=== PATIENT | male | born 1975 | race Hispanic/Latino ===

== ENCOUNTER 2017-08-28 22:44 | Inpatient (IN) | payer MEDICARE, MEDICAID ==
[2017-08-28 22:44] VITALS: BMI 21.2
--- NOTE | 2017-08-28 22:58 | ED PDOC ---
Arrival/HPI - General Chief Complaint: Psychiatric Evaluation Time Seen by Provider: 08/28/17 22:54 Historian: Patient EM Caveat: Acuity of Condition, Altered Mental Status, Other (suicidal ideation) - History of Present Illness Narrative History of Present Illness (Text): 08/28/17 22:58 Pt is a 41 yo M BIBA for Overdose of Seroquel (10 pills from 150 mg bottle and 10 pills from a 200 mg bottle) along with a large can of beer after having a fight with his girlfriend. Pt states that he felt extremely distraught and wanted to take his life after GF said she was leaving him. PMH includes depression and insomnia. Associated complaints include dry mouth and drowsiness. Denies cp, sob, dysphagia, LOC, abdominal pain, nausea, vomiting or diarrhea. Time/Duration: 1/2 hour Symptom Onset: Sudden Symptom Course: Improving, Worsening Severity Level: 1, Mild Activities at Onset: Rest Context: Home (had fight with girlfriend) Past Medical History - Provider Review Nursing Documentation Reviewed: Yes - Travel History Have you recently traveled outside [place] w/in the past 3 mons?: No - Past History Past History: No Previous - Infectious Disease Hx of Infectious Diseases: None - Tetanus Immunization Tetanus Immunization: Unknown - Cardiac Hx Cardiac Disorders: No Hx Hypertension: No - Pulmonary Hx Asthma: Yes Hx Tuberculosis: No - Neurological HX Cerebrovascular Accident: No Hx Seizures: No - Renal Other/Comment: As per patient he is currently seeing a specialist due to having problems emptying his bladder - Hematological/Oncological Hx Cancer: No - Integumentary Hx Psoriasis: Yes - Genitourinary/Gynecological Hx Sexually Transmitted Diseases: No - Psychiatric Hx Depression: Yes (Recent as per patient depressed for two days now) Hx Substance Use: No - Anesthesia Hx Anesthesia: No Hx Anesthesia Reactions: No Hx Malignant Hyperthermia: No Family/Social History - Physician Review Nursing Documentation Reviewed: Yes Family/Social History: No Known Family HX Smoking Status: Never Smoked Hx Alcohol Use: Yes (As per patient six beers) Hx Substance Use: No Allergies/Home Meds Allergies/Adverse Reactions: Allergies keflex Allergy (Uncoded 01/10/15 15:10) RASH Home Medications: Home Meds Medication Instructions Recorded Confirmed QUEtiapine [SEROquel] 200 mg PO HS 09/28/16 08/28/17 Review of Systems - Physician Review All systems were reviewed & negative as marked: Yes - Review of Systems Constitutional: Normal Eyes: Normal ENT: Normal Respiratory: Normal Cardiovascular: Normal Gastrointestinal: Normal Genitourinary Male: Normal Musculoskeletal: Normal Skin: Normal Neurological: Normal Endocrine: Normal Hemo/Lymphatic: Normal Psychiatric: Normal Physical Exam - Physical Exam Physical Exam Limitations: Altered Mental Status, Other (suicidal ideation) Vital Signs Reviewed: Yes Vital Signs Temp Pulse Resp BP Pulse Ox 08/29/17 07:55 98.0 F 71 18 117/78 98 08/29/17 07:35 98.0 F 84 18 117/78 95 08/29/17 06:30 66 18 97/68 L 100 08/29/17 05:03 79 17 119/70 100 08/29/17 00:40 85 17 105/62 97 08/28/17 23:02 98.7 F 83 16 101/75 96 Temperature: Afebrile Blood Pressure: Normal Pulse: Regular Respiratory Rate: Normal Appearance: Positive for: Non-Toxic Pain Distress: None Mental Status: Positive for: Alert and Oriented X 3 - Systems Exam Head: Present: Atraumatic, Normocephalic Pupils: Present: PERRL Extroacular Muscles: Present: EOMI Conjunctiva: Present: Normal Mouth: Present: Moist Mucous Membranes Neck: Present: Normal Range of Motion Respiratory/Chest: Present: Clear to Auscultation, Good Air Exchange. No: Respiratory Distress, Accessory Muscle Use Cardiovascular: Present: Regular Rate and Rhythm, Normal S1, S2. No: Murmurs Abdomen: Present: Normal Bowel Sounds. No: Tenderness, Distention, Peritoneal Signs Back: Present: Normal Inspection Upper Extremity: Present: Normal Inspection. No: Cyanosis, Edema Lower Extremity: Present: Normal Inspection. No: Edema Neurological: Present: GCS=15, CN II-XII Intact, Speech Normal Skin: Present: Warm, Dry, Normal Color. No: Rashes Psychiatric: Present: Alert, Oriented x 3, Normal Insight, Normal Concentration Medical Decision Making ED Course and Treatment: 08/28/17 23:04 Pt is a 41 yo M BIBA for Overdose of Seroquel (10 pills from 150 mg bottle and 10 pills from a 200 mg bottle along with a large can of beer. Plan: Psych consult-->intentional suicide OD workup-->poison control was called IVF bolus 1L LFTs and Mag level portable cxr ecg PES called to do evaluation and admit On reevaluation, pt was resting comfortably in bed; alert and oriented x 3. Re-evaluation Time: 00:19 (VSS and pt remains alert) - Lab Interpretations Lab Results: 08/28/17 23:00 08/28/17 23:00 Lab Results 08/29/17 00:30: Urine Opiates Screen Negative, Urine Methadone Screen Negative, Ur Barbiturates Screen Negative, Ur Phencyclidine Scrn Negative, Ur Amphetamines Screen Negative, U Benzodiazepines Scrn Negative, U Oth Cocaine Metabols Negative, U Cannabinoids Screen Negative 08/29/17 00:30: Urine Color Yellow, Urine Appearance Clear, Urine pH 6.0, Ur Specific [place] 1.025, Urine Protein Negative, Urine Glucose (UA) Negative, Urine Ketones Negative, Urine Blood Trace-intact H, Urine Nitrate Negative, Urine Bilirubin Negative, Urine Urobilinogen 0.2, Ur Leukocyte Esterase Negative , Urine RBC 0 - 2, Urine WBC 0 - 2, Ur Epithelial Cells 0 - 2 08/28/17 23:45: Magnesium 2.0 08/28/17 23:00: Alcohol, Quantitative < 10 08/28/17 23:00: Salicylates < 1 L, Acetaminophen < 10.0 L 08/28/17 23:00: Sodium 140, Potassium 3.7, Chloride 103, Carbon Dioxide 26, Anion Gap 15, BUN 15, Creatinine 0.9, Est GFR ( Amer) > 60, Est GFR (Non- Af Amer) > 60, Random Glucose 152 H, Calcium 9.6, Total Bilirubin 0.4, AST 22, ALT 32, Alkaline Phosphatase 82, Total Protein 7.1, Albumin 4.3, Globulin 2.8, Albumin/Globulin Ratio 1.5 08/28/17 23:00: WBC 6.3 D, RBC 4.73, Hgb 14.3, Hct 42.6, MCV 90.1, MCH 30.2, MCHC 33.6, RDW 12.9, Plt Count 195, MPV 10.5, Gran % 69.0 H, Lymph % (Auto) 24.0 , [place] % (Auto) 6.0, Eos % (Auto) 0.5 L, Baso % (Auto) 0.5, Gran # 4.35, Lymph # 1.5, [place] # 0.4, Eos # 0.0, Baso # 0.03 I have reviewed the lab results: Yes Interpretation: All labs normal - RAD Interpretation Narrative RAD Interpretations (Text): Impression: unremarkable; no indication of pulmonary or cardiac disease Radiology Orders: 08/28/17 22:57 CHEST PORTABLE [RAD] Stat Financial Developer: Radiologist - EKG Interpretation Interpreted by ED Physician: Yes (NSR, Rate of 83) - Medication Orders Current Medication Orders: Citalopram Hydrobromide (Celexa) 10 mg PO DAILY ANDREW Last Admin: 08/29/17 09:47 Dose: 10 mg Quetiapine Fumarate (Seroquel) 50 mg PO HS ANDREW PRN Reason: Protocol Discontinued Medications Sodium Chloride (Sodium Chloride 0.9%) 1,000 mls @ 250 mls/hr IV .Q4H ONE Stop: 08/29/17 03:14 Last Admin: 08/28/17 23:19 Dose: 250 mls/hr eMAR Start Stop Document 08/28/17 23:19 RD (Rec: 08/28/17 23:19 RD [id number]) Intravenous Solution Start Date 08/28/17 Start Time 23:19 Disposition/Present on Arrival - Present on Arrival Any Indicators Present on Arrival: Yes History of DVT/PE: No History of Uncontrolled Diabetes: No Urinary Catheter: No History of Decub. Ulcer: No History Surgical Site Infection Following: None - Disposition Have Diagnosis and Disposition been Completed?: Yes Diagnosis: Overdose, Suicidal behavior, Major depress dis, severe Disposition: HOSPITALIZED Disposition Time: 02:00 (PES admit) Patient Plan: Admission (To PES ) Patient Problems: Current Active Problems Problem Status Onset Major depress dis, severe Acute Overdose Acute Suicidal behavior Acute Condition: STABLE
[2017-08-28 23:12] LABS: BASO # 0.03 K/mm3 (0.0-2.0); BASO % 0.5 % (0.0-3.0); EOS % 0.5 % (1.5-5.0); GRAN # 4.35 (1.4-6.5); HEMOGLOBIN 14.3 g/dL (14.0-18.0); LYMPH # 1.5 (1.2-3.4); MEAN CELL VOLUME 90.1 fl (80.0-105.0); MEAN CORPUSCULAR HEMOGLOBIN 30.2 pg (25.0-35.0); MEAN CORPUSCULAR HGB CONC 33.6 g/dl (31.0-37.0); MEAN PLATELET VOLUME 10.5 fl (7.0-11.0); MONO # 0.4 (0.1-0.6); RBC 4.73 10^6/uL (3.5-6.1); RED CELL DISTRIBUTION WIDTH 12.9 % (11.5-14.5); WHITE BLOOD COUNT 6.3 10^3/ul (4.5-11.0)
[2017-08-28] MEDS ORDERED: Sodium Chloride 0.9% 1,000 ML IV ONE (23:15)
[2017-08-28 23:19] LABS: ACETAMINOPHEN < 10.0 ug/ml (10.0-20.0); SALICYLATE < 1 mg/dL (2.0-20.0)
[2017-08-28 23:21] LABS: ALB/GLOB RATIO 1.5 (1.1-1.8); ALBUMIN 4.3 g/dL (3.0-4.8); ALT/SGPT 32 U/L (7-56); AST/SGOT 22 U/L (17-59); BLOOD UREA NITROGEN 15 mg/dL (7-21); CALCIUM 9.6 mg/dL (8.4-10.5); GFR AFRICAN-AMERICAN > 60; GFR NON-AFRICAN AMERICAN > 60
[2017-08-29 01:08] LABS: URINE BILIRUBIN NEGATIVE (NEGATIVE); URINE BLOOD TRACE-INTACT (NEGATIVE); URINE GLUCOSE (UA) NEGATIVE (NEGATIVE); URINE LEUKOCYTE ESTERASE NEGATIVE Leu/uL (NEGATIVE); URINE NITRATE NEGATIVE (NEGATIVE); URINE PROTEIN NEGATIVE mg/dL (<30 mg/dL); URINE UROBILINOGEN 0.2 E.U./dL (<1 E.U./dL)
[2017-08-29 01:22] LABS: URINE APPEARANCE CLEAR (CLEAR); URINE COLOR YELLOW (YELLOW)
[2017-08-29 01:27] LABS: BARBITURATES, UR NEGATIVE (NEGATIVE); BENZODIAZEPINES, UR NEGATIVE (NEGATIVE); OPIATES, UR NEGATIVE (NEGATIVE); PHENCYCLIDINE, UR NEGATIVE (NEGATIVE)
[2017-08-29 01:42] LABS: URINE EPITHELIAL CELLS 0 - 2 /hpf (0-5); URINE RBC 0 - 2 /hpf (0-2); URINE WBC 0 - 2 /hpf (0-6)
[2017-08-29 07:56] VITALS: O2SAT 98
--- NOTE | 2017-08-29 08:52 | RAD ---
HISTORY: r/o infiltrate COMPARISON: 09/28/2016. FINDINGS: LUNGS: The lungs are well inflated and clear. PLEURA: No significant pleural effusion identified, no pneumothorax apparent. CARDIOVASCULAR: Normal. OSSEOUS STRUCTURES: No significant abnormalities. VISUALIZED UPPER ABDOMEN: Normal. OTHER FINDINGS: None. IMPRESSION: No active pulmonary disease.
--- NOTE | 2017-08-29 15:51 | CARD ---
APPROVED REPORT EKG Measurement Heart [id number] <Conclusion> Normal sinus rhythm Left axis deviation Incomplete right bundle branch block Septal infarct, age undetermined Abnormal ECG
--- NOTE | 2017-08-29 15:54 | CARD ---
APPROVED REPORT EKG Measurement Heart [id number] ID [id number] <Conclusion> Normal sinus rhythm Incomplete right bundle branch block Left anterior fascicular block Nonspecific T wave abnormality Abnormal ECG
--- NOTE | 2017-08-29 15:57 | CARD ---
APPROVED REPORT EKG Measurement Heart [id number] <Conclusion> Normal sinus rhythm Possible Left atrial enlargement Left axis deviation Incomplete right bundle branch block Abnormal ECG
--- NOTE | 2017-08-29 17:28 | PCM.BM ---
<Дмитрий Hurtado - Last Filed: 08/29/17 17:26> Treatment Plan Problems - Problems identified on initial assessmt Problem 1 Date Initiated: 08/29/17 Assessment reference: NA Status: Active Depression Date Initiated: 08/29/17 Time Initiated: 11:30 Assessment reference: NA Status: Active Treatment assets and liabiliti Patient Assests: adapts well, cooperative, ADL independent, physically healthy, good support system Patient Liabilities: relationship conflicts - Milieu Protocol Maintain good personal hygiene: daily Encourage regular showers, daily Remind patient to perform daily oral care, daily Assist patient to perform ADL's Maintain personal safety: daily Educate patient to report safety concerns to staff, daily Monitor environment for contraband/sharps Medication safety: Monitor for expected outcome, potential side effects: daily, Assess barriers to learning: daily, Assess readiness for medication education: daily Family Contact Family involvement: Patient does not wish Family/SO involvement Family contact: Patient agrees to contact - Goals for Treatment Patient goals for treatment: To stop feeling suicidal when im all alone Patient's family/SO goals for treatment: To stop feeling suicidal when im all alone Discharge/Continuing Care - Education Needs Education Needs: Patient Medication, Patient Diagnosis/Disease Process, Patient Coping Skills, Patient Activities of Daily Living - Discharge Discharge Criteria: Free of Suicidal thoughts, Normal sleep pattern <Jennifer Naylor - Last Filed: 08/31/17 15:43> - Diagnosis (1) Impulse control disorder Status: Acute Interventions: 08/31/17 15:46 Psychoeducation Psychopharmacology/adjustment of medications as needed/ monitoring possible side effects Evaluate pt on daily basis Compliance with medications and follow up appointments Suicide and homicide risk assessment and prevention, coping strategies, safety plan Relapse prevention Family involvement anger management (2) Major depress dis, severe Status: Acute Interventions: 08/31/17 15:47 Psychoeducation Psychopharmacology/adjustment of medications as needed/ monitoring possible side effects Evaluate pt on daily basis Compliance with medications and follow up appointments Suicide and homicide risk assessment and prevention Relapse prevention Reduction of symptoms Improve functional status Family involvement As outpatient: cognitive behavioral therapy <Melany Carlos - Last Filed: 08/31/17 15:57>
[2017-08-30 08:45] LABS: HDL CHOLESTEROL 46 mg/dL (29-60)
[2017-08-30 08:55] LABS: LDL CHOLESTEROL 125 mg/dL (0-129)
--- NOTE | 2017-08-30 11:02 | PCM.PSYCH ---
Initial Psychiatric Evaluation - Initial Psychiatric Evaluation Type of Admission: Voluntary History of Present Illness and Precipitating Events: Patient is a 41 year old male with a history of Mood Disorder, Alcohol Use Disorder, r/o Aspergers, r/o Borderline PD who was BIBA after patient impulsively ingested 20 Seroquel tablets, 150 mg after having a fight with his girlfriend who wasnt paying enough attention to him. Apparently patient had been arguing with girlfriend over texts about wanting to see her however she was feeling depressed and didnt feel like having company. The argument escalated and they superficially broke up. This led to patient ingesting pills and texting his girlfriend about the overdose. Girlfriend called an ambulance and also informed patients mother. Patient was seen at bedside. He is alert and very well-oriented. Thought process is clear. He is forthcoming about his overdose. Indicates it was impulsive and attention-seeking. He didn't want to . He is feeing much better and has gotten back together with his girlfriend. States "it is good to be alive". Patient reports his main stressor is his relationship with his girlfriend. He gets depressed because he doesnt see her enough and they have these types of arguments fairly often. He does have a history of depression and for that, he would like to start an antidepressant since he is only prescribed Seroquel by his psychiatrist for sleep. PSYCHIATRIC HISTORY Most recently psychiatrically hospitalized at [facility] (Former[facility]) 09/29/16-09/30/16. Given diagnosis of Mood disorder unspecified, Aspergers disorder by history as well as Alcohol Use Disorder. He was hospitalized after he drank some beer and took ibuprofen because of a fight with his girlfriend. ~In outpatient treatment with Dr. Mares x5+ years. Prescribed Seroquel 150 mg HS to help with insomnia. Most recent follow up was a couple weeks ago SOCIAL HISTORY Born and raised in [place]. Single. Has been dating his girlfriend, Arielle x3 years. He has no children and lives with his parents, brother and grandmother. 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 He is on disability for psoriasis. Patient denies excessive or daily alcohol consumption , states he drinks when he gets very angry which occurs infrequently. He denies drug or tobacco use. Denies any legal problems. Current Medications: Active Medications Generic Name Dose Route Start Last Admin Trade Name Freq PRN Reason Stop Dose Admin Acetaminophen 650 mg 08/29/17 11:41 Tylenol 325mg Tab PO Q6 PRN Pain, Mild (1-3) Citalopram Hydrobromide 10 mg 08/29/17 09:30 08/29/17 09:47 Celexa PO 10 mg DAILY ANDREW Administration Quetiapine Fumarate 50 mg 08/29/17 22:00 08/29/17 22:16 Seroquel PO 50 mg HS ANDREW Administration Protocol Past Psychiatric History - Past Psychiatric History Pertinent Medical Hx (Current Medical&Sleep Prob, Allergies): Allergies Allergy/AdvReac Type Severity Reaction Status Date / Time keflex Allergy RASH Uncoded 08/29/17 16:28 QUEtiapine [SEROquel] 200 mg PO HS 09/28/16 Mental Status Examination - Personal Presentation Personal Presentation: Looks stated age - Affect Affect: Constricted - Motor Activity Motor Activity: Calm - Reliability in Providing Information Reliability in Providing Information: Good - Speech Speech: Organized - Mood Mood: Depressed - Formal Thought Process Formal Thought Process: No Impairment - Obsessions/Compulsions Obsessions: No Compulsions: No - Cognitive Functions Orientation: Person, Place, Situation Sensorium: Alert Attention/Concentration: Attentive Abstract Thinking: [place] Estimate of Intelligence: Average Judgement: Imparied, as evidence by: Poor judgement Memory: Remote intact, as evidenced by: Abilit to recall sig. life events - Risk Risk: Suicidal - Strength & Assets Inventory Strength & Assets Inventory: Family support, Cooperative DSM 5 DX - DSM 5 DSM 5 Diagnosis: Mood Disorder NOS Borderline Personality Disorder by history Aspergers by history - Recommended/Plan of Treatment Treatment Recommendations and Plan of Treatment: * Group, milieu and supportive tx * Seroquel 150 mg HS for mood control and off-label for insomnia * Celexa 10 mg po daily for depression * Awaiting medical consult * Vitals reviewed and noted below: 08/29/17 08/30/17 07:55 07:45 Temperature 98.0 F 98.0 F Pulse Rate 71 62 Respiratory 18 20 Rate Blood Pressure 117/78 96/64 L ER LABS AND STUDIES 08/29/17 00:30: Urine Opiates Screen Negative, Urine Methadone Screen Negative, Ur Barbiturates Screen Negative, Ur Phencyclidine Scrn Negative, Ur Amphetamines Screen Negative, U Benzodiazepines Scrn Negative, U Oth Cocaine Metabols Negative, U Cannabinoids Screen Negative 08/29/17 00:30: Urine Color Yellow, Urine Appearance Clear, Urine pH 6.0, Ur Specific [place] 1.025, Urine Protein Negative, Urine Glucose (UA) Negative, Urine Ketones Negative, Urine Blood Trace-intact H, Urine Nitrate Negative, Urine Bilirubin Negative, Urine Urobilinogen 0.2, Ur Leukocyte Esterase Negative , Urine RBC 0 - 2, Urine WBC 0 - 2, Ur Epithelial Cells 0 - 2 08/28/17 23:45: Magnesium 2.0 08/28/17 23:00: Alcohol, Quantitative < 10 08/28/17 23:00: Salicylates < 1 L, Acetaminophen < 10.0 L 08/28/17 23:00: Sodium 140, Potassium 3.7, Chloride 103, Carbon Dioxide 26, Anion Gap 15, BUN 15, Creatinine 0.9, Est GFR ( Amer) > 60, Est GFR (Non- Af Amer) > 60, Random Glucose 152 H, Calcium 9.6, Total Bilirubin 0.4, AST 22, ALT 32, Alkaline Phosphatase 82, Total Protein 7.1, Albumin 4.3, Globulin 2.8, Albumin/Globulin Ratio 1.5 08/28/17 23:00: WBC 6.3 D, RBC 4.73, Hgb 14.3, Hct 42.6, MCV 90.1, MCH 30.2, MCHC 33.6, RDW 12.9, Plt Count 195, MPV 10.5, Gran % 69.0 H, Lymph % (Auto) 24.0 , [place] % (Auto) 6.0, Eos % (Auto) 0.5 L, Baso % (Auto) 0.5, Gran # 4.35, Lymph # 1.5, [place] # 0.4, Eos # 0.0, Baso # 0.03 Narrative RAD Interpretations (Text): Impression: unremarkable; no indication of pulmonary or cardiac disease FLOOR LABS 08/30/17 07:30 Triglycerides 110 Cholesterol 202 H LDL Cholesterol Direct 125 HDL Cholesterol 46 - Smoking Cessation Smoking Cessation Initiated: No Reason for not providing: PATIENT DOES NOT SMOKE TOBACCO
--- NOTE | 2017-08-30 17:47 | CP.PCM.CON ---
<Jackson Polanco - Last Filed: 08/30/17 17:35> History of Present Illness - History of Present Illness History of Present Illness: IM Consult note for Hospitalist Service Consulted for Medical Management This is a 41 yo M with PMH of asthma, depression, insomnia, psoriasis, and prior intentional OD (attempted to OD on Motrin for suicide) who presents to [facility] with intentional overdose on Seroquel. Patient largely somnolent, so ROS and HPI limited, mainly obtained from ED and Psych charting. As per ED, patient reported that he got into a fight with significant other, who told him she was leaving him, so he overdosed on 10x pills of 150mg Seroquel and 10x pills of 200mg Seroquel, along with a "large can of beer." Patient reported intention to end his own life in the ED. As per psych, calmer since admission to the ED, now denying SI, describes OD as just to get attention. During exam by medicine team today, patient was largely somnolent, answering in single or few word answers, denying acute sx or pain, denying active desire to harm self, and was asking for more seroquel. Denies chest pain, shortness of breath, nausea, emesis. All other ROS negative in 12-system review. Poison control was notified regarding the overdose by the ED, and is aware of the patient. PMD: Dr. Elmore PMH: as above PSH: patient denies Fam Hx: denies Social Hx: denies illicits or tobacco; per prior charting, variable level of alcohol intake (up to 6-pack per day as per note at [facility] and ED note, tells Psych here only drinks when angry which is infrequent) Allergies: keflex (rash) Review of Systems - Review of Systems All systems: reviewed and no additional remarkable complaints except (as per HPI ) Past Patient History - Infectious Disease Hx of Infectious Diseases: None - Tetanus Immunizations Tetanus Immunization: Unknown - Past Social History Smoking Status: Never Smoked - CARDIAC Hx Cardiac Disorders: No Hx Hypertension: No - PULMONARY Hx Asthma: Yes Hx Tuberculosis: No - NEUROLOGICAL HX Cerebrovascular Accident: No Hx Seizures: No - HEENT Hx Sinusitis: No - RENAL Other/Comment: As per patient he is currently seeing a specialist due to having problems emptying his bladder - HEMATOLOGICAL/ONCOLOGICAL Hx Cancer: No - INTEGUMENTARY Hx Psoriasis: Yes - GENITOURINARY/GYNECOLOGICAL Hx Sexually Transmitted Disorders: No - PSYCHIATRIC Hx Substance Use: No - SURGICAL HISTORY Hx Surgeries: No - ANESTHESIA Hx Anesthesia: No Hx Anesthesia Reactions: No Hx Malignant Hyperthermia: No Meds Allergies/Adverse Reactions: Allergies Allergy/AdvReac Type Severity Reaction Status Date / Time keflex Allergy RASH Uncoded 08/29/17 16:28 - Medications Medications: Current Medications Acetaminophen (Tylenol 325mg Tab) 650 mg PO Q6 PRN PRN Reason: Pain, Mild (1-3) Citalopram Hydrobromide (Celexa) 10 mg PO DAILY [facility] Last Admin: 08/30/17 09:42 Dose: 10 mg Quetiapine Fumarate (Seroquel) 150 mg PO HS [facility]REW PRN Reason: Protocol Physical Exam - Constitutional Appears: Non-toxic, No Acute Distress, Other (lethargic) - Head Exam Head Exam: ATRAUMATIC, NORMAL INSPECTION, NORMOCEPHALIC - Eye Exam Eye Exam: Normal appearance. absent: Conjunctival injection, Scleral icterus - ENT Exam ENT Exam: Mucous Membranes Moist - Neck Exam Neck exam: Positive for: Normal Inspection - Respiratory Exam Respiratory Exam: Clear to Auscultation Bilateral, NORMAL BREATHING PATTERN. absent: Rales, Rhonchi, Wheezes - Cardiovascular Exam Cardiovascular Exam: REGULAR RHYTHM, RRR, +S1, +S2. absent: Bradycardia, Tachycardia, Irregular Rhythm, +S4 - GI/Abdominal Exam GI & Abdominal Exam: Normal Bowel Sounds, Soft. absent: Tenderness - Extremities Exam Extremities exam: Positive for: normal inspection. Negative for: pedal edema - Neurological Exam Additional comments: lethargic but arousable, answering questions in few word answers, some spontaneous movement of extremities on arousal - Psychiatric Exam Additional comments: difficult to assess due to lethargy, not acutely anxious or agitated - Skin Skin Exam: Dry, Intact, Normal Color, Warm Results - Vital Signs Recent Vital Signs: Last Vital Signs Temp 98.0 F 08/30/17 07:45 Pulse 62 08/30/17 07:45 Resp 20 08/30/17 07:45 BP 96/64 L 08/30/17 07:45 Pulse Ox 98 08/29/17 07:55 - Labs Result Diagrams: 08/28/17 23:00 08/28/17 23:00 Labs: Laboratory Results - last 24 hr 08/30/17 07:30 Triglycerides 110 Cholesterol 202 H LDL Cholesterol Direct 125 HDL Cholesterol 46 Assessment & Plan - Assessment and Plan (Free Text) Assessment: This is a 41 yo M with PMH of asthma, depression, insomnia, psoriasis, and prior intentional OD (attempted to OD on Motrin for suicide) who presents to [facility] with intentional overdose on Seroquel. Poison control notified and is aware of patient. Plan: 1) Seroquel overdose - intentional -initially reported as intending to commit suicide, now pt reported as attention seeking behavior and is denying SI -Poison control notified by ED, defer to their recs for management -Serial EKGs obtained since admission, QTc remains 420's-450's, no gross prolongation, consistent rate and normal segments 2) Depression/SI with attempt -defer to psych for management 3) Hx Asthma -Satting well on room air, no respiratory distress noted -if develops wheezing, would recommend PRN Albuterol Dispo: Inpt Psych FEN: regular diet Consults: IM for medical management (Psych is primary), Poison Control Ppx: Ambulation for DVT At this time, patient is medically stable, we will sign off. Please reconsult as necessary. Patient seen, examined, and discussed with attending, Dr Krishnamurthy. <Modesta Krishnamurthy - Last Filed: 08/30/17 18:32> Meds - Medications Medications: Current Medications Acetaminophen (Tylenol 325mg Tab) 650 mg PO Q6 PRN PRN Reason: Pain, Mild (1-3) Citalopram Hydrobromide (Celexa) 10 mg PO DAILY [facility] Last Admin: 08/30/17 09:42 Dose: 10 mg Quetiapine Fumarate (Seroquel) 150 mg PO [facility] PRN Reason: Protocol Results - Vital Signs Recent Vital Signs: Last Vital Signs Temp 98.0 F 08/30/17 07:45 Pulse 62 08/30/17 07:45 Resp 20 08/30/17 07:45 BP 96/64 L 08/30/17 07:45 Pulse Ox 98 08/29/17 07:55 - Labs Result Diagrams: 08/28/17 23:00 08/28/17 23:00 Labs: Laboratory Results - last 24 hr 08/30/17 07:30 Triglycerides 110 Cholesterol 202 H LDL Cholesterol Direct 125 HDL Cholesterol 46 Attending/Attestation - Attestation I have personally seen and examined this patient.: Yes I have fully participated in the care of the patient.: Yes I have reviewed all pertinent clinical information: Yes Notes (Text): 08/30/17 18:30 Attending note: Patient seen and examined with resident in Psych floor. Patient is a 41 yo M with PMH of asthma, depression, insomnia, psoriasis, and prior intentional OD (attempted to OD on Motrin for suicide) who presents to [facility] with intentional overdose on Seroquel. currently patient is alert and awake. medically stable. Repeat EKG showed no new changes. Alcohol use. Complete cessation is strongly recommended. labs reviewed. Mildly elevated glucose. Follow up Hb A1c level. Advise carbohydrate consistent diet. patient is medically stable. Reconsult as needed. Follow up with PMD DR. Elmore upon discharge. 08/30/17 18:31
--- NOTE | 2017-08-31 15:43 | PCM.PYCHPN ---
Psychiatric Progress Note - Psychiatric Progress Note Patient seen today, length of contact: 30min Patient Chief Complaint: "I broke up with my girlfriend, I didn't mean to, but then she broke up with me , then I texted her that I will be by morning, then she showed up to my house, I felt better, but then police came over" Problems Identified/Issues Discussed: Suicide/ homicide prevention, past psychiatric h/o, current psychiatric symptoms , medical problems, risk/benefits and alternatives of medications, medications compliance, coping strategies, substance abuse h/o, relapse prevention, importance of follow up with psychiatrist and therapist, discharge plan. Medical Problems: denied Diagnostic Results: 08/28/17 23:00 08/28/17 23:00 Lab Results 08/30/17 07:30: Hemoglobin A1c 5.3 08/30/17 07:30: Triglycerides 110, Cholesterol 202 H, LDL Cholesterol Direct 125 , HDL Cholesterol 46 08/29/17 00:30: Urine Opiates Screen Negative, Urine Methadone Screen Negative, Ur Barbiturates Screen Negative, Ur Phencyclidine Scrn Negative, Ur Amphetamines Screen Negative, U Benzodiazepines Scrn Negative, U Oth Cocaine Metabols Negative, U Cannabinoids Screen Negative 08/29/17 00:30: Urine Color Yellow, Urine Appearance Clear, Urine pH 6.0, Ur Specific [place] 1.025, Urine Protein Negative, Urine Glucose (UA) Negative, Urine Ketones Negative, Urine Blood Trace-intact H, Urine Nitrate Negative, Urine Bilirubin Negative, Urine Urobilinogen 0.2, Ur Leukocyte Esterase Negative , Urine RBC 0 - 2, Urine WBC 0 - 2, Ur Epithelial Cells 0 - 2 08/28/17 23:45: Magnesium 2.0 08/28/17 23:00: Alcohol, Quantitative < 10 08/28/17 23:00: Salicylates < 1 L, Acetaminophen < 10.0 L 08/28/17 23:00: Sodium 140, Potassium 3.7, Chloride 103, Carbon Dioxide 26, Anion Gap 15, BUN 15, Creatinine 0.9, Est GFR ( Amer) > 60, Est GFR (Non- Af Amer) > 60, Random Glucose 152 H, Calcium 9.6, Total Bilirubin 0.4, AST 22, ALT 32, Alkaline Phosphatase 82, Total Protein 7.1, Albumin 4.3, Globulin 2.8, Albumin/Globulin Ratio 1.5 08/28/17 23:00: WBC 6.3 D, RBC 4.73, Hgb 14.3, Hct 42.6, MCV 90.1, MCH 30.2, MCHC 33.6, RDW 12.9, Plt Count 195, MPV 10.5, Gran % 69.0 H, Lymph % (Auto) 24.0 , [place] % (Auto) 6.0, Eos % (Auto) 0.5 L, Baso % (Auto) 0.5, Gran # 4.35, Lymph # 1.5, [place] # 0.4, Eos # 0.0, Baso # 0.03 Vital Signs Temp Pulse Resp BP Pulse Ox 08/30/17 07:45 98.0 F 62 20 96/64 L 08/29/17 07:55 98.0 F 71 18 117/78 98 08/29/17 07:35 98.0 F 84 18 117/78 95 08/29/17 06:30 66 18 97/68 L 100 08/29/17 05:03 79 17 119/70 100 08/29/17 00:40 85 17 105/62 97 08/28/17 23:02 98.7 F 83 16 101/75 96 DSM 5 Symptoms Update: as per assessmen: Patient is a 41 year old male with a history of Mood Disorder, Alcohol Use Disorder, r/o Aspergers, r/o Borderline PD who was BIBA after patient impulsively ingested 20 Seroquel tablets, 150 mg after having a fight with his girlfriend who wasnt paying enough attention to him. Apparently patient had been arguing with girlfriend over texts about wanting to see her however she was feeling depressed and didnt feel like having company. The argument escalated and they superficially broke up. This led to patient ingesting pills and texting his girlfriend about the overdose. Girlfriend called an ambulance and also informed patients mother. patient was seen at the treatment team meeting, patient has some developmental deficit, as per history questionable on Spurger syndrome, childlike demeanor, thought process is circumstantial and tangential at the same time very concrete. patient said that she was upset over the fact that his girlfriend would meet with him on last Ar[place], patient said that he text that his girlfriend saying I will go my way, he will go your way', said that patient girlfriend decided to break up with him, and exit him back saying that she doesn't want to see him anymore. After days patient went to the store and bought a big can of beer, patient said after he had beer she decided to overdose on his leftover Seroquel , all together it was 10 pills of 100 mg and 10 pills of 50 mg, after overdose patient asked that his girlfriend about what he has done. His girlfriend came over to his house after what "I was feeling much better, I needed to have her attention". At the same time police showed up in his house, patient reported that he was brought to the hospital for evaluation. Patient had children live demeanor, vocabulary is poor. he reported that he compliant with the Celexa, reported no side effects. strong family of mental illness, strong family of suicidal attempts, patient brother overdose on pills in the past, patient's father tried to kill himself in the past As per staff patient is compliant with her treatment, started to attend to the groups. Impression Impulse control disorder Rule out major depressive disorder Rule out As pergers ssyndrome syndrome Medication Change: Yes (continued) Medical Record Reviewed: Yes Consults ordered or reviewed: medical consult Mental Status Examination - Cognitive Function Orientation: Person, Place, Situation Memory: Impaired Attention: Poor Concentration: Poor Association: Loose Fund of Knowledge: Poor - Mood Mood: Depressed - Affect Affect: Constricted - Formal Thought Process Formal Thought Process: No Impairment - Suicidal Ideation Suicidal Ideation: No - Homicidal Ideation Homicidal Ideation: No Goal/Treatment Plan - Goal/Treatment Plan Need for Continued Stay: Remain at risks for inpatient hospitalization, Severe depression anxiety, Discharge may exacerbated symptoms, Severe functional impairment Progress Toward Problem(s) and Goals/Treatment Plan: Milieu/structure/supportive therapy Medical consult appreciated, see medical team note for more detailed info SW consultation for discharge plan and social issues Med management celexa was started 20 mg daily for depression and impulse control Seroquel was continued on 50 mg at the nighttime for mood stabilization Family involvement or collateral information Follow up on labs Will monitor closely Pt was educated about risk/benefits and alternatives of medications, coping strategies (safety plan, suicide prevention), relapse prevention, importance of follow up with psychiatrist and therapist, stay away from drugs/alcohol/smoking Estimated Date of D/C: 09/04/17
[2017-09-01] MEDS ORDERED: Alum-Mag Hydrox-Simethicone Susp (30 mL) PO PRN (01:29)
[2017-09-01] MEDS ORDERED: Magnesium Hydroxide Susp 30 ml UD PO PRN (01:29)
--- NOTE | 2017-09-01 15:06 | PCM.PYCHPN ---
Psychiatric Progress Note - Psychiatric Progress Note Patient seen today, length of contact: 30min Patient Chief Complaint: "I was acting irrationally" Problems Identified/Issues Discussed: Suicide/ homicide prevention, past psychiatric h/o, current psychiatric symptoms , medical problems, risk/benefits and alternatives of medications, medications compliance, coping strategies, substance abuse h/o, relapse prevention, importance of follow up with psychiatrist and therapist, discharge plan. Medical Problems: denied Diagnostic Results: 08/28/17 23:00 08/28/17 23:00 Lab Results 08/30/17 07:30: Hemoglobin A1c 5.3 08/30/17 07:30: Triglycerides 110, Cholesterol 202 H, LDL Cholesterol Direct 125 , HDL Cholesterol 46 08/29/17 00:30: Urine Opiates Screen Negative, Urine Methadone Screen Negative, Ur Barbiturates Screen Negative, Ur Phencyclidine Scrn Negative, Ur Amphetamines Screen Negative, U Benzodiazepines Scrn Negative, U Oth Cocaine Metabols Negative, U Cannabinoids Screen Negative 08/29/17 00:30: Urine Color Yellow, Urine Appearance Clear, Urine pH 6.0, Ur Specific [place] 1.025, Urine Protein Negative, Urine Glucose (UA) Negative, Urine Ketones Negative, Urine Blood Trace-intact H, Urine Nitrate Negative, Urine Bilirubin Negative, Urine Urobilinogen 0.2, Ur Leukocyte Esterase Negative , Urine RBC 0 - 2, Urine WBC 0 - 2, Ur Epithelial Cells 0 - 2 08/28/17 23:45: Magnesium 2.0 08/28/17 23:00: Alcohol, Quantitative < 10 08/28/17 23:00: Salicylates < 1 L, Acetaminophen < 10.0 L 08/28/17 23:00: Sodium 140, Potassium 3.7, Chloride 103, Carbon Dioxide 26, Anion Gap 15, BUN 15, Creatinine 0.9, Est GFR ( Amer) > 60, Est GFR (Non- Af Amer) > 60, Random Glucose 152 H, Calcium 9.6, Total Bilirubin 0.4, AST 22, ALT 32, Alkaline Phosphatase 82, Total Protein 7.1, Albumin 4.3, Globulin 2.8, Albumin/Globulin Ratio 1.5 08/28/17 23:00: WBC 6.3 D, RBC 4.73, Hgb 14.3, Hct 42.6, MCV 90.1, MCH 30.2, MCHC 33.6, RDW 12.9, Plt Count 195, MPV 10.5, Gran % 69.0 H, Lymph % (Auto) 24.0 , [place] % (Auto) 6.0, Eos % (Auto) 0.5 L, Baso % (Auto) 0.5, Gran # 4.35, Lymph # 1.5, [place] # 0.4, Eos # 0.0, Baso # 0.03 Vital Signs Temp Pulse Resp BP Pulse Ox 08/30/17 07:45 98.0 F 62 20 96/64 L 08/29/17 07:55 98.0 F 71 18 117/78 98 08/29/17 07:35 98.0 F 84 18 117/78 95 08/29/17 06:30 66 18 97/68 L 100 08/29/17 05:03 79 17 119/70 100 08/29/17 00:40 85 17 105/62 97 08/28/17 23:02 98.7 F 83 16 101/75 96 DSM 5 Symptoms Update: Patient is a 41 year old male with a history of Mood Disorder, Alcohol Use Disorder, r/o Aspergers, r/o Borderline PD who was BIBA after patient impulsively ingested 20 Seroquel tablets, 150 mg after having a fight with his girlfriend who wasnt paying enough attention to him. Apparently patient had been arguing with girlfriend over texts about wanting to see her however she was feeling depressed and didnt feel like having company. The argument escalated and they superficially broke up. This led to patient ingesting pills and texting his girlfriend about the overdose. Girlfriend called an ambulance and also informed patients mother. patient was seen at the treatment team meeting, patient has some developmental deficit, as per history questionable correction to my previous note it is not "on Spurger syndrome" but Asperger's syndrome, childlike demeanor, thought process is circumstantial and tangential at the same time very concrete. pt acknowledged that his impulsive act to overdose on meds was "irrational", pt deems to be remorseful for it. collaterals from family, as per mother and girlfriend pt acting impulsively when he is angry. Pt is willing to go to anger management classes at [facility]. pt is willing to increase celexa today, which tolerated well. strong family of mental illness, strong family of suicidal attempts, patient brother overdose on pills in the past, patient's father tried to kill himself in the past As per staff patient is compliant with her treatment, started to attend to the groups. Impression Impulse control disorder Rule out major depressive disorder Rule out As pergers ssyndrome syndrome Medication Change: Yes (celexa increased) Medical Record Reviewed: Yes Consults ordered or reviewed: medical consult Mental Status Examination - Cognitive Function Orientation: Person, Place, Situation Memory: Impaired Attention: Poor Concentration: Poor Association: Loose Fund of Knowledge: Poor - Mood Mood: Depressed - Affect Affect: Constricted - Formal Thought Process Formal Thought Process: No Impairment - Suicidal Ideation Suicidal Ideation: No - Homicidal Ideation Homicidal Ideation: No Goal/Treatment Plan - Goal/Treatment Plan Need for Continued Stay: Remain at risks for inpatient hospitalization, Severe depression anxiety, Discharge may exacerbated symptoms, Severe functional impairment Progress Toward Problem(s) and Goals/Treatment Plan: Milieu/structure/supportive therapy Medical consult appreciated, see medical team note for more detailed info SW consultation for discharge plan and social issues Med management celexa was started (correction not 20mg but 10 mg daily), today will be increased to 15 mg for depression and impulse control Seroquel was continued on (correction not 50mg but 150 mg) at the nighttime for mood stabilization Family involvement or collateral information Follow up on labs Will monitor closely Pt was educated about risk/benefits and alternatives of medications, coping strategies (safety plan, suicide prevention), relapse prevention, importance of follow up with psychiatrist and therapist, stay away from drugs/alcohol/smoking Estimated Date of D/C: 09/04/17
[2017-09-02 09:39] VITALS: BP 103/73; PULSE 75; RESP 20; TEMP 98
--- NOTE | 2017-09-02 17:13 | PCM.PYCHDC ---
Mental Status Examination - Mental Status Examination Orientation: Person, Place, Situation, Time Memory: Intact Mood: Neutral Affect: Broad Attention: WNL Concentration: WNL Association: WNL Fund of Knowledge: WNL Formal Thought Process: No Impairment Description of patient's judgement and insight: Pt has improved insight into mental and medical illness, pt was compliant with medications and unit rules and regulations, pt was going to groups, was calm, cooperative, socially appropriate, no behavioral incidents, no agitation, no aggression. Psychotic Thoughts and Behaviors: Pt denied v/a/t hallucinations, denied paranoid ideations, pt does not appear to be psychotic, and thought process is goal directed. Suicidal Ideation: No Current Homicidal Ideation?: No Plan: pt adamantly denied thoughts of harming self or others denied intent or plan. Discharge Summary - Discharge Note Reason for Hospitalization: s/p overdose on seroquel Psychiatric History (includes Medical, Family, Personal Hx): h/o mood spectrtum disorder, impulse control disorder Laboratory Data: 08/28/17 23:00 08/28/17 23:00 Lab Results 08/30/17 07:30: Hemoglobin A1c 5.3 08/30/17 07:30: Triglycerides 110, Cholesterol 202 H, LDL Cholesterol Direct 125 , HDL Cholesterol 46 08/29/17 00:30: Urine Opiates Screen Negative, Urine Methadone Screen Negative, Ur Barbiturates Screen Negative, Ur Phencyclidine Scrn Negative, Ur Amphetamines Screen Negative, U Benzodiazepines Scrn Negative, U Oth Cocaine Metabols Negative, U Cannabinoids Screen Negative 08/29/17 00:30: Urine Color Yellow, Urine Appearance Clear, Urine pH 6.0, Ur Specific [place] 1.025, Urine Protein Negative, Urine Glucose (UA) Negative, Urine Ketones Negative, Urine Blood Trace-intact H, Urine Nitrate Negative, Urine Bilirubin Negative, Urine Urobilinogen 0.2, Ur Leukocyte Esterase Negative , Urine RBC 0 - 2, Urine WBC 0 - 2, Ur Epithelial Cells 0 - 2 08/28/17 23:45: Magnesium 2.0 08/28/17 23:00: Alcohol, Quantitative < 10 08/28/17 23:00: Salicylates < 1 L, Acetaminophen < 10.0 L 08/28/17 23:00: Sodium 140, Potassium 3.7, Chloride 103, Carbon Dioxide 26, Anion Gap 15, BUN 15, Creatinine 0.9, Est GFR ( Amer) > 60, Est GFR (Non- Af Amer) > 60, Random Glucose 152 H, Calcium 9.6, Total Bilirubin 0.4, AST 22, ALT 32, Alkaline Phosphatase 82, Total Protein 7.1, Albumin 4.3, Globulin 2.8, Albumin/Globulin Ratio 1.5 08/28/17 23:00: WBC 6.3 D, RBC 4.73, Hgb 14.3, Hct 42.6, MCV 90.1, MCH 30.2, MCHC 33.6, RDW 12.9, Plt Count 195, MPV 10.5, Gran % 69.0 H, Lymph % (Auto) 24.0 , [place] % (Auto) 6.0, Eos % (Auto) 0.5 L, Baso % (Auto) 0.5, Gran # 4.35, Lymph # 1.5, [place] # 0.4, Eos # 0.0, Baso # 0.03 Vital Signs Temp Pulse Resp BP Pulse Ox 09/02/17 07:00 98.0 F 75 20 103/73 09/01/17 16:00 73 122/84 09/01/17 08:01 98.2 F 68 19 108/70 08/31/17 16:00 78 125/81 08/30/17 07:45 98.0 F 62 20 96/64 L 08/29/17 07:55 98.0 F 71 18 117/78 98 08/29/17 07:35 98.0 F 84 18 117/78 95 08/29/17 06:30 66 18 97/68 L 100 08/29/17 05:03 79 17 119/70 100 08/29/17 00:40 85 17 105/62 97 08/28/17 23:02 98.7 F 83 16 101/75 96 Consultations:: List each consultation separately and include: 1. Reason for request. 2. Findings. 3. Follow-up Consultations: medical consult was called Summary of Hospital Course include:: 1. Description of specific treatment plan utilized for patients during their course of treatmen. 2. Summarize the time- course for resolution of acute symptoms and/or regressed behaviors. 3. Describe issues identified and worked on during hospitalization. 4. Describe medication utilized. 5. Describe medical problems identified and treated. 6. Reassessment of suicide risk Summary of Hospital Course: Patient is a 41 year old male with a history of Mood Disorder, Alcohol Use Disorder, r/o Aspergers, r/o Borderline PD who was BIBA after patient impulsively ingested 20 Seroquel tablets, 150 mg after having a fight with his girlfriend who wasnt paying enough attention to him. Apparently patient had been arguing with girlfriend over texts about wanting to see her however she was feeling depressed and didnt feel like having company. The argument escalated and they superficially broke up. This led to patient ingesting pills and texting his girlfriend about the overdose. Girlfriend called an ambulance and also informed patients mother. during the initial assessment pt presented like he has some developmental deficit, as per history questionable Asperger's syndrome, childlike demeanor, thought process is circumstantial and tangential at the same time very concrete. patient said that she was upset over the fact that his girlfriend would meet with him on last Thursday, patient said that he text that his girlfriend saying I will go my way, he will go your way', said that patient girlfriend decided to break up with him, and exit him back saying that she doesn't want to see him anymore. After days patient went to the store and bought a big can of beer, patient said after he had beer she decided to overdose on his leftover Seroquel , all together it was 10 pills of 100 mg and 10 pills of 50 mg, after overdose patient asked that his girlfriend about what he has done. His girlfriend came over to his house after what "I was feeling much better, I needed to have her attention". At the same time police showed up in his house, patient reported that he was brought to the hospital for evaluation. Patient had children live demeanor, vocabulary is poor. he reported that he compliant with the Celexa, reported no side effects. strong family of mental illness, strong family of suicidal attempts, patient brother overdose on pills in the past, patient's father tried to kill himself in the past As per staff patient is compliant with her treatment, started to attend to the groups. over the course of this hospitalization pt was stabilized on the following meds: celexa 10 mg daily for depression and impulse control (this jingle writer wanted to increase it to 15, but pt refused. Seroquel 150 mg at the nighttime for mood stabilization pt tolerated meds well, no side effects observed or reported, AIMS 0, no EPS. collaterals from mother/girlfriend, appreciated pt wants to attend anger management classes Over the course of this hospitalization pt was attending groups, pt also had medication management, had therapeutic milieu. Overall pt improved significantly, pt's affect became brighter, pt was less depressed, has realistic future oriented plans, pt also does not appear to be psychotic, or anxious, pt was socially appropriate, no behavioral issues, pts insight improved as well and soon pt deemed to be ready for discharge. At the time of the discharge pt denied been depressed, denied thoughts of harming self or others, denied psychotic symptoms, and pt does not appeared to be psychotic, denied been anxious, pt is not in imminent danger to self or others, will be following up at ., information about follow up appointment, time and address provided to the pt, it is patient responsibility to follow up with outpatient clinic, PMD as well as specialists (see note for more detailed information). In case pt will need to obtain results of studies pending at discharge pt was provided with contact information of Psychiatric Inpatient unit [phone] as well as Medical Record Department [phone]. Counseling alcohol cessation provided AA meetings treatment program information was provided by the pt denied cravings, denied abusing alcohol, does not meet a criteria for naltrexone tx pt was provided with prescriptions for all of medications (please see medication reconciliation form) Pt was educated about safety plan in case of worsening of symptoms or in case of suicidal or homicidal ideation call 911 or go to the nearest ER, also was educated to take meds as prescribed and stay away from drugs, pt verbalized understanding. - Diagnosis (1) Impulse control disorder Status: Acute Priority: High (2) Major depress dis, severe Status: Chronic Priority: Medium - Final Diagnosis (DSM 5) Condition upon Discharge: GOOD Disposition: HOME/ ROUTINE Follow-up Treatment Plan: At the time of the discharge pt denied been depressed, denied thoughts of harming self or others, denied psychotic symptoms, and pt does not appeared to be psychotic, denied been anxious, pt is not in imminent danger to self or others, will be following up at ., information about follow up appointment, time and address provided to the pt, it is patient responsibility to follow up with outpatient clinic, PMD as well as specialists (see note for more detailed information). In case pt will need to obtain results of studies pending at discharge pt was provided with contact information of Psychiatric Inpatient unit [phone] as well as Medical Record Department [phone]. Counseling alcohol cessation provided AA meetings treatment program information was provided by the pt denied cravings, denied abusing alcohol, does not meet a criteria for naltrexone tx pt was provided with prescriptions for all of medications (please see medication reconciliation form) Pt was educated about safety plan in case of worsening of symptoms or in case of suicidal or homicidal ideation call 911 or go to the nearest ER, also was educated to take meds as prescribed and stay away from drugs, pt verbalized understanding. Prescriptions/Medication Reconciliation: Citalopram [celeXA] 10 mg PO DAILY #14 tab - Smoking Cessation Smoking Cessation Medication prescribed: No Reason for not providing: pt denied smoking - Antipsychotic Medications Pt discharged on 2 or more routine antipsychotic medications: No
== END 2017-09-02 16:41 | disposition home or self-care (01) | DRG 885 ==
LOC: ED 22:44 → ERH 08-29 07:05 → PSYC 08-29 08:25
PROVIDERS: ADMIT Psychologist; ATTEND Psychiatry & Neurology Psychiatry
DX: F32.2 Major depressive disorder, single episode, severe without psychotic features (principal); F39 Unspecified mood [affective] disorder; F60.3 Borderline personality disorder; F63.9 Impulse disorder, unspecified; F84.5 Asperger's syndrome; J45.909 Unspecified asthma, uncomplicated; L40.9 Psoriasis, unspecified; T43.592A Poisoning by other antipsychotics and neuroleptics, intentional self-harm, initial encounter; Z91.5 Personal history of self-harm; Z79.899 Other long term (current) drug therapy; Z88.1 Allergy status to other antibiotic agents; R40.2412 Glasgow coma scale score 13-15, at arrival to emergency department